=== PATIENT | female | born 1965 | race Caucasian/White ===

== ENCOUNTER → 2023-12-29 20:23 | Outpatient (REF) | payer BC, SELFPAY | LOC: MRI 20:23 | PROVIDERS: ATTENDING PHYSICIAN Student in an Organized Health Care Education/Training Program | DX: G56.92 Unspecified mononeuropathy of left upper limb (principal); G57.92 Unspecified mononeuropathy of left lower limb; R42 Dizziness and giddiness | CPT/HCPCS: 70553; A9575 ==